=== PATIENT | female | born 1990 | race Caucasian/White ===

== ENCOUNTER 2022-05-15 22:57 | Emergency (ER) | payer OTHER ==
[~2022-05-15 22:57] MED LIST: COLACE 100MG C100 MG PO; IBUPROFEN600 MG PO; NORCO 5-325 TA1 EACH PO; SUBUTEX 8 MG TAB8 MG PO
== END 2022-05-16 01:13 | disposition left against medical advice (07) ==
LOC: ER1 22:57
DX: Z53.21 Procedure and treatment not carried out due to patient leaving prior to being seen by health care provider (principal)